=== PATIENT | male | born 1940 | race Two or more races ===

== ENCOUNTER 2016-03-02 07:41 | Inpatient (IN) | payer MEDICARE, OTHER ==
[2016-03-02 07:00] LABS: BASO % 0.2 % (0-2); EOS % 2.4 % (0-7); EOSINOPHIL ABSOLUTE COUNT 0.2 tho/cmm (0.0-0.7); HCT-HEMATOCRIT 33.2 % (36.0-53.5); HGB-HEMOGLOBIN 11.7 gm/dl (13.5-17.0); IMMATURE GRANULOCYTES ABSOLUTE 0.01 tho/cmm (0-0.03); IMMATURE GRANULOCYTES PERCENT 0.1 % (0-0.3); LYMPH ABSOLUTE COUNT 1.6 tho/cmm (0.8-4.5); MCH (MEAN CORPUSCULAR HGB) 29.8 pg (28.0-32.0); MCHC MEAN CORPUSCULAR HGB CONC 35.2 % (32.0-36.0); MCV (MEAN CELL VOLUME) 84.7 fl (82.0-96.0); MEAN PLATELET VOLUME 9.8 cmc (9.4-12.4); MONO % 10.6 % (0-12); MONOCYTE ABSOLUTE COUNT 0.9 tho/cmm (0.0-1.2); NEUTROPHIL ABSOLUTE COUNT 5.7 tho/cmm (1.6-8.0); NEUTROPHIL-AUTOMATED 5.7 tho/cmm (1.6-8.0); NEUTROPHILS % 67.7 % (40-80); PLATELET COUNT 251 tho/cmm (150-450); RED BLOOD COUNT 3.92 mil/cmm (4.40-5.70); RED CELL DISTRIBUTION WIDTH 13.4 % (12.4-16.4); WHITE BLOOD COUNT 8.4 tho/cmm (4.0-10.0)
[2016-03-02 07:04] LABS: INR 2.8 INR (0.9-1.1)
[2016-03-02 07:12] LABS: ANION GAP 17 mmol/L (5-15); BLOOD UREA NITROGEN 49 mg/dl (6-25); C-REACTIVE PROTEIN 4.2 mg/dl (0-0.5); CALCIUM 8.9 mg/dl (8.6-10.2); CARBON DIOXIDE-VENOUS 25 mmol/L (22-29); CHLORIDE 94 mmol/L (98-110); CREATININE 3.26 mg/dl (0.67-1.17); GLUCOSE 95 mg/dl (65-120); POTASSIUM 3.2 mmol/L (3.4-5.0); SODIUM 136 mmol/L (135-146); eGFR VALUE FOR BLACK 23 mL/Min
[2016-03-02 07:26] LABS: ESR-ERYTHROCYTE SED RATE 125 mm/hr (0-20)
[~2016-03-02 07:41] MED LIST: ADULT LOW DOSE81 M1 PO; ALBUTEROL SULF8.5 G2 IH; ALBUTEROL0.63 MG/1 IH; ALDACTONE25 MG PO; ALLOPURINOL100 M1 PO; ALLOPURINOL100 MG PO; AMIODARONE HCL200 M1 PO; AMOXICILLIN500 M1 PO; ASPIR 8181 MG PO; ASPIRIN81 M1 PO; AUGMENTIN 875-1 EAC2 PO; B COMPLEX1 EAC1 PO; BACLOFEN20 M1 PO; BAL B-1001 EACH PO; CARDIZEM CD180 MG PO; CARDIZEM CD240 MG PO; CLARITHROMYCIN500 M2 PO; COLACE100 M1 PO; COLCRYS0.6 M1 PO; COMPAZINE5 M2 PO; CORDARONE200 M1 PO; COUMADIN1 M1 PO; COUMADIN2 M1 PO; COUMADIN3 M1 PO; COUMADIN4 M1 PO; COUMADIN4 MG PO; COUMADIN5 M1 PO; COUMADIN5 M2 PO; COZAAR50 MG PO; CPAP; DEXAMETHASONE4 M1 PO; DULCOLAX5 M1 PO; FENOFIBRATE145 M2 PO; FLOMAX0.4 M1 PO; FLOMAX0.4 MG PO; FOLIC ACID0.4 M1 PO; FOLIC ACID1 M1 PO; FOLIC ACID1 MG PO; FUROSEMIDE20 MG PO; FUROSEMIDE40 M2 PO; FUROSEMIDE80 M2 PO; HYDROCODON-ACE1 EA16 PO; INDOCIN25 MG/5 ML PO; INDOMETHACIN75 M1 PO; ISOSORBIDE MONO30 M4 PO; ISOSORBIDE MONO60 M3 PO; K-TAB ER20 ME1 PO; LASIX40 M1 PO; LASIX80 M1 PO; LEVAQUIN500 MG PO; LEVOTHYROXINE50 MC3 PO; LONITEN2.5 MG PO; LOPRESSOR100 MG PO; LOSARTAN POTAS100 MG PO; LOTREL 5/201 CAP PO; MAXZIDE 75/50 T1 TAB PO; METOPROLOL SUCC25 M1 PO; METOPROLOL TART25 M1 PO; MINOXIDIL10 M1 PO; MINOXIDIL2.5 M1 PO; MINOXIDIL2.5 MG PO; MIRALAX17 G2 PO; MORPHINE SULFAT15 MG PO; MULTIVITAMIN1 TAB PO; NEURONTIN100 M1 PO; NEURONTIN300 M1 PO; NITROGLYCERIN0.4 M2 SL; NITROQUICK0.4 MG SL; NORCO 5-325 TA1 EACH PO; NORCO 5/3251 TAB PO; NORVASC5 M2 PO; OMEPRAZOLE MAGN20 M1 PO; OMEPRAZOLE20 M3 PO; PACERONE200 MG PO; POTASSIUM CHLO10 MEQ PO; POTASSIUM CHLO20 ME2 PO; POTASSIUM CHLO20 ME3 PO; PREDNISONE1 M1; PREDNISONE10 M1 PO; PRILOSEC20 M1 PO; PROTONIX40 M2 PO; SENOKOT-S TABLE1 TAB PO; SIMVASTATIN10 M1 PO; SIMVASTATIN10 MG PO; SIMVASTATIN40 MG PO; SYMBICORT 160-1 PUFF INH; SYNTHROID50 MC1 PO; TAMSULOSIN HCL0.4 M1 PO; TOPROL XL25 M1 PO; TUMS200 MG PO; TYLENOL EXTRA500 M1 PO; TYLENOL650 MG PO; ULTRAM50 M1 PO; VANCOMYCIN1 GM/VIA1 IV; VELCADE3.5 MG/VIA; VITAMIN D31000 UNI3 PO; VITAMIN D31000 UNI4 PO; WARFARIN SODIUM5 M2 PO
[2016-03-02 20:10] LABS: PROTHROMBIN TIME 23.9 SECONDS (9.0-13.6)
[2016-03-03 03:10] LABS: BASO % 0.5 % (0-2); EOS % 1.9 % (0-7); EOSINOPHIL ABSOLUTE COUNT 0.2 tho/cmm (0.0-0.7); HCT-HEMATOCRIT 28.7 % (36.0-53.5); HGB-HEMOGLOBIN 9.9 gm/dl (13.5-17.0); IMMATURE GRANULOCYTES ABSOLUTE 0.01 tho/cmm (0-0.03); IMMATURE GRANULOCYTES PERCENT 0.1 % (0-0.3); LYMPH % 14.5 % (20-45); LYMPH ABSOLUTE COUNT 1.1 tho/cmm (0.8-4.5); MCH (MEAN CORPUSCULAR HGB) 29.1 pg (28.0-32.0); MCHC MEAN CORPUSCULAR HGB CONC 34.5 % (32.0-36.0); MCV (MEAN CELL VOLUME) 84.4 fl (82.0-96.0); MEAN PLATELET VOLUME 9.5 cmc (9.4-12.4); MONO % 10.5 % (0-12); MONOCYTE ABSOLUTE COUNT 0.8 tho/cmm (0.0-1.2); NEUTROPHIL ABSOLUTE COUNT 5.7 tho/cmm (1.6-8.0); NEUTROPHIL-AUTOMATED 5.7 tho/cmm (1.6-8.0); NEUTROPHILS % 72.5 % (40-80); PLATELET COUNT 243 tho/cmm (150-450); RED CELL DISTRIBUTION WIDTH 13.2 % (12.4-16.4); WHITE BLOOD COUNT 7.9 tho/cmm (4.0-10.0)
[2016-03-03 03:21] LABS: INR 1.6 INR (0.9-1.1)
[2016-03-03 03:23] LABS: ANION GAP 12 mmol/L (5-15); BLOOD UREA NITROGEN 47 mg/dl (6-25); CALCIUM 8.3 mg/dl (8.6-10.2); CARBON DIOXIDE-VENOUS 29 mmol/L (22-29); CHLORIDE 97 mmol/L (98-110); CREATININE 2.96 mg/dl (0.67-1.17); GLUCOSE 111 mg/dl (65-120); POTASSIUM 3.4 mmol/L (3.4-5.0); SODIUM 138 mmol/L (135-146); eGFR VALUE FOR BLACK 25 mL/Min
[2016-03-03 03:33] LABS: PROTHROMBIN TIME 19.2 SECONDS (9.0-13.6)
--- NOTE | 2016-03-03 11:29 | NUR ---
virtual care note: checked in with patient at this time. he is resting post I&D with DR Estes this am. states his pain is well controlled. has no questions at this time, but understands he can call VN if he does have any questions or concerns/needs. is in good spirits. d/w pt the plan as well as the ID consultation. will continue to monitor. electronic chart reviewed.
--- NOTE | 2016-03-03 20:40 | NUR ---
VN ROUNDING NOTE-PATIENT LAYING IN BED STATES PAIN IS MOSTLY CONTROLLED. BEDSIDE NURSE IN ROOM GETTING READY TO GIVE HIM SOME PAIN MEDS, IV IS SALINE LOCKED AND LEFT ELBOW IS ELEVATED. WE DISCUSSED THAT HIS COUMADIN IS TO BE RESUMED TOMORROW AND POSSIBLE DISCHARGE TOMORROW DEPENDING ON WHAT DOCTOR SAYS. NO FURTHER QUESTIONS OR CONCERNS AT THIS TIME
--- NOTE | 2016-03-04 14:59 | NUR ---
checked in w/ pt at this time. no needs. resting. orders to check labs in am, no disturbing pt between the hours of 2200 and 0600 so that he can rest better. these orders are per DR March. pt is alert/oriented. electronic chart reviewed. will continue to monitor
--- NOTE | 2016-03-04 20:07 | NUR ---
VIRTUAL CARE NOTE: ASSESSMENT DEFERRED. PT. SLEEPING.
[2016-03-05 05:59] LABS: BASO % 0.3 % (0-2); EOS % 2.4 % (0-7); EOSINOPHIL ABSOLUTE COUNT 0.2 tho/cmm (0.0-0.7); HCT-HEMATOCRIT 30.8 % (36.0-53.5); HGB-HEMOGLOBIN 10.5 gm/dl (13.5-17.0); IMMATURE GRANULOCYTES ABSOLUTE 0.03 tho/cmm (0-0.03); IMMATURE GRANULOCYTES PERCENT 0.3 % (0-0.3); INR 1.2 INR (0.9-1.1); LYMPH % 18.2 % (20-45); LYMPH ABSOLUTE COUNT 1.6 tho/cmm (0.8-4.5); MCH (MEAN CORPUSCULAR HGB) 29.2 pg (28.0-32.0); MCHC MEAN CORPUSCULAR HGB CONC 34.1 % (32.0-36.0); MCV (MEAN CELL VOLUME) 85.6 fl (82.0-96.0); MEAN PLATELET VOLUME 9.3 cmc (9.4-12.4); MONO % 9.8 % (0-12); MONOCYTE ABSOLUTE COUNT 0.9 tho/cmm (0.0-1.2); NEUTROPHIL ABSOLUTE COUNT 6.2 tho/cmm (1.6-8.0); NEUTROPHIL-AUTOMATED 6.2 tho/cmm (1.6-8.0); PLATELET COUNT 286 tho/cmm (150-450); RED CELL DISTRIBUTION WIDTH 13.3 % (12.4-16.4)
[2016-03-05 06:02] LABS: PROTHROMBIN TIME 14.5 SECONDS (9.0-13.6)
[2016-03-05 06:16] LABS: ALBUMIN 3.2 g/dl (3.5-5.2); ANION GAP 13 mmol/L (5-15); BLOOD UREA NITROGEN 33 mg/dl (6-25); C-REACTIVE PROTEIN 5.8 mg/dl (0-0.5); CALCIUM 8.9 mg/dl (8.6-10.2); CARBON DIOXIDE-VENOUS 28 mmol/L (22-29); CHLORIDE 98 mmol/L (98-110); GLUCOSE 113 mg/dl (65-120); PHOSPHOROUS 2.7 mg/dl (2.7-4.5); POTASSIUM 3.5 mmol/L (3.4-5.0); SODIUM 139 mmol/L (135-146); eGFR VALUE FOR BLACK 29 mL/Min
--- NOTE | 2016-03-05 20:55 | NUR ---
VIRTUAL CARE NOTE: ASSESSMENT DEFERRED. ATTEMPTED TO ROUND X2. PT SLEEPING. WILL CONTINUE WITH CHART REVIEW.
[2016-03-06 05:16] LABS: INR 1.3 INR (0.9-1.1); PROTHROMBIN TIME 14.7 SECONDS (9.0-13.6)
[2016-03-07 04:06] LABS: ALBUMIN 2.8 g/dl (3.5-5.2); ANION GAP 15 mmol/L (5-15); BLOOD UREA NITROGEN 34 mg/dl (6-25); C-REACTIVE PROTEIN 7.3 mg/dl (0-0.5); CALCIUM 9.1 mg/dl (8.6-10.2); CARBON DIOXIDE-VENOUS 27 mmol/L (22-29); CHLORIDE 98 mmol/L (98-110); CREATININE 2.28 mg/dl (0.67-1.17); GLUCOSE 104 mg/dl (65-120); PHOSPHOROUS 3.5 mg/dl (2.7-4.5); POTASSIUM 3.4 mmol/L (3.4-5.0); SODIUM 140 mmol/L (135-146); eGFR VALUE FOR BLACK 34 mL/Min
[2016-03-07 04:18] LABS: BASO % 0.4 % (0-2); EOS % 1.7 % (0-7); EOSINOPHIL ABSOLUTE COUNT 0.2 tho/cmm (0.0-0.7); HCT-HEMATOCRIT 29.8 % (36.0-53.5); HGB-HEMOGLOBIN 10.1 gm/dl (13.5-17.0); IMMATURE GRANULOCYTES ABSOLUTE 0.03 tho/cmm (0-0.03); IMMATURE GRANULOCYTES PERCENT 0.3 % (0-0.3); LYMPH % 17.8 % (20-45); LYMPH ABSOLUTE COUNT 1.7 tho/cmm (0.8-4.5); MCH (MEAN CORPUSCULAR HGB) 29.2 pg (28.0-32.0); MCHC MEAN CORPUSCULAR HGB CONC 33.9 % (32.0-36.0); MCV (MEAN CELL VOLUME) 86.1 fl (82.0-96.0); MEAN PLATELET VOLUME 9.4 cmc (9.4-12.4); MONO % 11.1 % (0-12); MONOCYTE ABSOLUTE COUNT 1.1 tho/cmm (0.0-1.2); NEUTROPHIL ABSOLUTE COUNT 6.5 tho/cmm (1.6-8.0); NEUTROPHIL-AUTOMATED 6.5 tho/cmm (1.6-8.0); NEUTROPHILS % 68.7 % (40-80); PLATELET COUNT 315 tho/cmm (150-450); RED BLOOD COUNT 3.46 mil/cmm (4.40-5.70); RED CELL DISTRIBUTION WIDTH 13.4 % (12.4-16.4); WHITE BLOOD COUNT 9.5 tho/cmm (4.0-10.0)
[2016-03-07 04:21] LABS: INR 1.4 INR (0.9-1.1); PROTHROMBIN TIME 15.9 SECONDS (9.0-13.6)
[2016-03-07 16:48] LABS: BODY FLUID APPEARANCE CLOUDY (CLEAR); BODY FLUID COLOR YELLOW (COLORLESS); BODY FLUID RBC COUNT 2000 cmm (0); BODY FLUID TYPE RIGHT KNEE SYNOVIAL; BODY FLUID VOLUME 30 ml; BODY FLUID WBC COUNT 15572 cmm
--- NOTE | 2016-03-07 21:04 | NUR ---
[facility] ROUNDING NOTE-VISITED WITH PATIENT HE LAY IN BED WITH BEDSIDE NURSE IN ROOM GIVING 2100 MEDS. PATIENT STATES PAIN HAS BEEN CONTROLLED AND RONAL SAID SHE WOULD BE GIVING HIM SOME SOON HE IS RATING HIS PAIN AT A 6 NOW. PATIENT STATES ALL NURSES HAVE BEEN GREAT AND NOT OTHER QUESTIONS OR CONCERNS AT THIS TIME.
[2016-03-08 05:35] LABS: INR 1.4 INR (0.9-1.1); PROTHROMBIN TIME 16.4 SECONDS (9.0-13.6)
[2016-03-08 05:45] LABS: C-REACTIVE PROTEIN 6.1 mg/dl (0-0.5); eGFR VALUE FOR BLACK 34 mL/Min
--- NOTE | 2016-03-08 20:32 | NUR ---
VN ROUNDING - DID NOT ROUND ON PATIENT HE IS SLEEPING. NO IV RUNNING, WILL CONTINUE CHART REVIEW
[2016-03-09 05:18] LABS: BASO % 0.3 % (0-2); EOSINOPHIL ABSOLUTE COUNT 0.3 tho/cmm (0.0-0.7); HCT-HEMATOCRIT 30.3 % (36.0-53.5); HGB-HEMOGLOBIN 10.3 gm/dl (13.5-17.0); IMMATURE GRANULOCYTES ABSOLUTE 0.02 tho/cmm (0-0.03); IMMATURE GRANULOCYTES PERCENT 0.2 % (0-0.3); LYMPH % 19.2 % (20-45); LYMPH ABSOLUTE COUNT 1.7 tho/cmm (0.8-4.5); MCH (MEAN CORPUSCULAR HGB) 29.3 pg (28.0-32.0); MCV (MEAN CELL VOLUME) 86.1 fl (82.0-96.0); MEAN PLATELET VOLUME 8.7 cmc (9.4-12.4); MONO % 5.8 % (0-12); MONOCYTE ABSOLUTE COUNT 0.5 tho/cmm (0.0-1.2); NEUTROPHIL ABSOLUTE COUNT 6.4 tho/cmm (1.6-8.0); NEUTROPHIL-AUTOMATED 6.4 tho/cmm (1.6-8.0); NEUTROPHILS % 71.5 % (40-80); PLATELET COUNT 345 tho/cmm (150-450); RED BLOOD COUNT 3.52 mil/cmm (4.40-5.70); RED CELL DISTRIBUTION WIDTH 13.4 % (12.4-16.4); WHITE BLOOD COUNT 8.9 tho/cmm (4.0-10.0)
[2016-03-09 05:19] LABS: INR 1.5 INR (0.9-1.1); PROTHROMBIN TIME 18.1 SECONDS (9.0-13.6)
[2016-03-09 05:33] LABS: ESR-ERYTHROCYTE SED RATE 122 mm/hr (0-20)
[2016-03-10 06:12] LABS: BASO % 0.1 % (0-2); HCT-HEMATOCRIT 30.6 % (36.0-53.5); HGB-HEMOGLOBIN 10.4 gm/dl (13.5-17.0); IMMATURE GRANULOCYTES ABSOLUTE 0.02 tho/cmm (0-0.03); IMMATURE GRANULOCYTES PERCENT 0.2 % (0-0.3); LYMPH % 11.9 % (20-45); LYMPH ABSOLUTE COUNT 1.2 tho/cmm (0.8-4.5); MCH (MEAN CORPUSCULAR HGB) 29.1 pg (28.0-32.0); MCV (MEAN CELL VOLUME) 85.7 fl (82.0-96.0); MEAN PLATELET VOLUME 8.9 cmc (9.4-12.4); MONO % 4.5 % (0-12); MONOCYTE ABSOLUTE COUNT 0.5 tho/cmm (0.0-1.2); NEUTROPHIL ABSOLUTE COUNT 8.4 tho/cmm (1.6-8.0); NEUTROPHIL-AUTOMATED 8.4 tho/cmm (1.6-8.0); NEUTROPHILS % 83.3 % (40-80); PLATELET COUNT 407 tho/cmm (150-450); RED BLOOD COUNT 3.57 mil/cmm (4.40-5.70); RED CELL DISTRIBUTION WIDTH 13.1 % (12.4-16.4); WHITE BLOOD COUNT 10.1 tho/cmm (4.0-10.0)
[2016-03-10 06:16] LABS: INR 1.5 INR (0.9-1.1)
[2016-03-10 06:32] LABS: ANION GAP 13 mmol/L (5-15); BLOOD UREA NITROGEN 48 mg/dl (6-25); C-REACTIVE PROTEIN 3.2 mg/dl (0-0.5); CALCIUM 9.3 mg/dl (8.6-10.2); CARBON DIOXIDE-VENOUS 29 mmol/L (22-29); CHLORIDE 99 mmol/L (98-110); CREATININE 2.53 mg/dl (0.67-1.17); GLUCOSE 143 mg/dl (65-120); POTASSIUM 4.1 mmol/L (3.4-5.0); SODIUM 141 mmol/L (135-146); eGFR VALUE FOR BLACK 30 mL/Min
[2016-03-10 07:04] LABS: ESR-ERYTHROCYTE SED RATE >140 mm/hr (0-20)
[2016-03-10] MEDS ORDERED: PREDNISONE10 M1 (12:00)
[2016-03-10] MEDS ORDERED: COLACE100 M1 PO (12:02)
[2016-03-10] MEDS ORDERED: FOLIC ACID1 M1 PO (12:03)
[2016-03-10] MEDS ORDERED: VANCOMYCIN HCL500 MG IVPB (12:05)
[2016-08-20] MEDS ORDERED: LASIX80 M1 PO (15:04)
[2016-08-20] MEDS ORDERED: COUMADIN4 M1 PO (15:06)
[2016-08-20] MEDS ORDERED: PERCOCET 5-3251 EACH PO (15:08)
[2016-08-20] MEDS ORDERED: ZYLOPRIM100 M1 PO (15:16)
[2016-08-20] MEDS ORDERED: OCTAGAM 10% VIA20 ML IV (15:28)
== END 2016-03-10 13:15 | disposition home health service (06) | DRG 549 ==
LOC: EDMED 07:41 → EMR2 09:28 → 5WD 10:20 → PACU 03-03 08:28 → 5WD 03-03 10:17
PROVIDERS: Emergency Medicine; Family Medicine; Internal Medicine; Internal Medicine Infectious Disease; Orthopaedic Surgery Orthopaedic Surgery of the Spine; ADMIT Internal Medicine
PROC: 5A09357 Assistance with Respiratory Ventilation, Less than 24 Consecutive Hours, Continuous Positive Airway Pressure (ICD-10-PCS; 2016-03-02)
PROC: 0R9M0ZX Drainage of Left Elbow Joint, Open Approach, Diagnostic (ICD-10-PCS; principal; 2016-03-03)
DX: M00.9 Pyogenic arthritis, unspecified (principal); C90.01 Multiple myeloma in remission; N18.4 Chronic kidney disease, stage 4 (severe); G70.80 Lambert-Eaton syndrome, unspecified; I48.2 Chronic atrial fibrillation; N17.9 Acute kidney failure, unspecified; I13.0 Hypertensive heart and chronic kidney disease with heart failure and stage 1 through stage 4 chronic kidney disease, or unspecified chronic kidney disease; I50.32 Chronic diastolic (congestive) heart failure; E03.9 Hypothyroidism, unspecified; E78.5 Hyperlipidemia, unspecified; G47.33 Obstructive sleep apnea (adult) (pediatric); M25.461 Effusion, right knee; Z79.01 Long term (current) use of anticoagulants
CPT/HCPCS: J1170; J1940; J2543; J3010; J3370; J3430; J7030; J7050; J7512; P9017

== ENCOUNTER 2016-04-29 22:10 | Emergency (ER) | payer MEDICARE, OTHER ==
[~2016-04-29 22:10] MED LIST changes: +PREDNISONE10 M1; +VANCOMYCIN HCL500 MG IVPB
[2016-04-29 23:20] LABS: BASO % 0.5 % (0-2); EOS % 1.8 % (0-7); EOSINOPHIL ABSOLUTE COUNT 0.1 tho/cmm (0.0-0.7); HCT-HEMATOCRIT 34.6 % (36.0-53.5); HGB-HEMOGLOBIN 11.6 gm/dl (13.5-17.0); IMMATURE GRANULOCYTES ABSOLUTE 0.01 tho/cmm (0-0.03); IMMATURE GRANULOCYTES PERCENT 0.1 % (0-0.3); LYMPH % 27.3 % (20-45); LYMPH ABSOLUTE COUNT 2.1 tho/cmm (0.8-4.5); MCH (MEAN CORPUSCULAR HGB) 29.7 pg (28.0-32.0); MCHC MEAN CORPUSCULAR HGB CONC 33.5 % (32.0-36.0); MCV (MEAN CELL VOLUME) 88.5 fl (82.0-96.0); MEAN PLATELET VOLUME 9.1 cmc (9.4-12.4); MONOCYTE ABSOLUTE COUNT 0.5 tho/cmm (0.0-1.2); NEUTROPHIL ABSOLUTE COUNT 4.9 tho/cmm (1.6-8.0); NEUTROPHIL-AUTOMATED 4.9 tho/cmm (1.6-8.0); NEUTROPHILS % 63.3 % (40-80); PLATELET COUNT 304 tho/cmm (150-450); RED BLOOD COUNT 3.91 mil/cmm (4.40-5.70); RED CELL DISTRIBUTION WIDTH 15.6 % (12.4-16.4); WHITE BLOOD COUNT 7.7 tho/cmm (4.0-10.0)
[2016-04-29 23:25] LABS: INR 2.3 INR (0.9-1.1); PROTHROMBIN TIME 27.4 SECONDS (9.0-13.6)
[2016-04-30] MEDS ORDERED: NORCO 5-325 TA1 EACH PO (00:12)
[2016-04-30] MEDS ORDERED: PREDNISONE20 M1 PO (00:12)
[2016-08-20] MEDS ORDERED: LASIX80 M1 PO (15:04)
[2016-08-20] MEDS ORDERED: COUMADIN4 M1 PO (15:06)
[2016-08-20] MEDS ORDERED: PERCOCET 5-3251 EACH PO (15:08)
[2016-08-20] MEDS ORDERED: ZYLOPRIM100 M1 PO (15:16)
[2016-08-20] MEDS ORDERED: OCTAGAM 10% VIA20 ML IV (15:28)
== END 2016-04-30 00:29 ==
LOC: EDMED 22:10
PROVIDERS: Emergency Medicine
PROC: 2W3QXYZ Immobilization of Right Lower Leg using Other Device (ICD-10-PCS; principal; 2016-04-29)
DX: M25.461 Effusion, right knee (principal); G89.29 Other chronic pain; N18.9 Chronic kidney disease, unspecified
CPT/HCPCS: J7512